=== PATIENT | male | born 1960 | race Caucasian/White ===

== ENCOUNTER 2017-02-09 19:51 | Emergency (ER) | payer OTHER ==
[~2017-02-09 19:51] MED LIST: LOTREL 5/20 MG1 CAP PO; SIMVASTATIN10 MG PO
[2017-02-09] MEDS ORDERED: OMEPRAZOLE20 M3 PO (20:27)
[2017-02-09] MEDS ORDERED: MULTIVITAMIN PO (20:27)
[2017-02-09] MEDS ORDERED: VITAMIN D PO (20:28)
[2017-02-09] MEDS ORDERED: PEPCID20 M1 (20:29)
[2017-02-09 20:55] LABS: BASO % 0.4 % (0-2); EOSINOPHIL ABSOLUTE COUNT 0.2 tho/cmm (0.0-0.7); IMMATURE GRANULOCYTES ABSOLUTE 0.01 tho/cmm (0-0.03); IMMATURE GRANULOCYTES PERCENT 0.2 % (0-0.3); LYMPH % 26.4 % (20-45); LYMPH ABSOLUTE COUNT 1.5 tho/cmm (0.8-4.5); MCH (MEAN CORPUSCULAR HGB) 29.7 pg (28.0-32.0); MCHC MEAN CORPUSCULAR HGB CONC 34.1 % (32.0-36.0); MCV (MEAN CELL VOLUME) 87.1 fl (82.0-96.0); MEAN PLATELET VOLUME 9.8 cmc (9.4-12.4); MONO % 9.7 % (0-12); MONOCYTE ABSOLUTE COUNT 0.6 tho/cmm (0.0-1.2); NEUTROPHIL ABSOLUTE COUNT 3.4 tho/cmm (1.6-8.0); NEUTROPHIL-AUTOMATED 3.4 tho/cmm (1.6-8.0); NEUTROPHILS % 60.3 % (40-80); PLATELET COUNT 232 tho/cmm (150-450); RED BLOOD COUNT 5.05 mil/cmm (4.40-5.70); WHITE BLOOD COUNT 5.7 tho/cmm (4.0-10.0)
[2017-02-09] MEDS ORDERED: IBUPROFEN600 M1 PO (22:03)
== END 2017-02-09 22:15 ==
LOC: EDMED 19:51
PROVIDERS: Physician Assistant
DX: I80.02 Phlebitis and thrombophlebitis of superficial vessels of left lower extremity (principal); I25.10 Atherosclerotic heart disease of native coronary artery without angina pectoris; I10 Essential (primary) hypertension; K21.9 Gastro-esophageal reflux disease without esophagitis; Z79.82 Long term (current) use of aspirin; Z79.899 Other long term (current) drug therapy; Z98.890 Other specified postprocedural states